=== PATIENT | female | born 1975 | race African-American/Black ===

== ENCOUNTER 2017-11-29 18:25 | Emergency (ER) | payer MEDICAID, OTHER ==
[~2017-11-29] VITALS: Ht 149.9 cm; Wt 107.4 kg
[2017-11-29 18:27] VITALS: BP 150/87; PULSE 79; RESP 16; TEMP 97.9; O2SAT 100
[2017-11-29] MEDS ORDERED: HYDR25TA5 PO ×2 (18:40→18:59)
[2017-11-29] MEDS ORDERED: AMLO10TA2 PO ×2 (18:40→18:59)
[2017-11-29] MEDS ORDERED: IBUP1TAB7 PO (18:59)
[2017-11-29] MEDS ORDERED: CYCL10TA PO (18:59)
[2017-11-29] MEDS ORDERED: KETOROLAC TROMETHAMINE 60 MG/2 ML (IM) VIAL IM ONE (19:00)
--- NOTE | 2017-11-29 19:12 | PD ---
HPI Chief Complaint: Musculoskeletal Complaint Time Seen by Provider: 18:42 Travel History International Travel<30 days: No Contact w/Intl Traveler<30days: No Traveled to known affect area: No History of Present Illness HPI 42-year-old female with PMH of hypertension presents to the ED for evaluation of low back pain. Gradual onset 4 days. Patient endorses recent overuse, stating that she's been carrying the load of 2 people at her job in the [employer]. She denies fever, chills, dysuria, hematuria, nausea or vomiting. She denies numbness, tingling, weakness, limitations to range of motion of the extremities , saddle anesthesia or incontinence. Denies trauma to the area. She treated at home with 800 mg ibuprofen with no improvement of symptoms. She also requests refills of her antihypertensive medications. PFSH Past Medical History Diminished Hearing: No Hypertension: Yes Tetanus Vaccination: > 5 Years Influenza Vaccination: No ?: Unknown Past Surgical History Section: Yes Social History Alcohol Use: Yes (OCC) Tobacco Use: Yes (FEW CIGARS) Substance Use: No Allergies-Medications (Allergen,Severity, Reaction): Coded Allergies: penicillin G (Unverified Allergy, Severe, HIVES, 11/29/17) Uncoded Allergies: NKA (Allergy, Unknown, 05/27/03) PENICILLIN (Allergy, Unknown, 05/27/03) Reported Meds & Prescriptions Reported Meds & Active Scripts Active Flexeril (Cyclobenzaprine HCl) 10 Mg Tab 10 Mg PO TID Ibuprofen 800 Mg Tab 800 Mg PO Q8H PRN Amlodipine (Amlodipine Besylate) 10 Mg Tab 10 Mg PO DAILY Hydrochlorothiazide 25 Mg Tab 25 Mg PO DAILY Review of Systems Except as stated in HPI: all other systems reviewed are Neg Physical Exam Narrative GENERAL: Well-nourished, well-developed obese AA female in no acute distress. SKIN: Focused skin assessment warm/dry. HEAD: Normocephalic. EYES: No scleral icterus. No injection or drainage. NECK: Supple, trachea midline. No JVD or lymphadenopathy. CARDIOVASCULAR: Regular rate and rhythm without murmurs, gallops, or rubs. RESPIRATORY: Breath sounds equal bilaterally. No accessory muscle use. GASTROINTESTINAL: Abdomen soft, non-tender, nondistended. MUSCULOSKELETAL: No cyanosis, or edema. 5/5 strength of the upper and lower extremities bilaterally. BACK: No obvious deformity. No CVA tenderness. No midline tenderness palpation. Tender palpation of the paraspinal musculature in the lumbar area. Data Data Last Documented VS Vital Signs Date Time Temp Pulse Resp B/P (MAP) Pulse Ox O2 Delivery O2 Flow Rate FiO2 11/29/17 18:27 97.9 79 16 150/87 (108) 100 Orders Orders Ketorolac Inj (Toradol Inj) (11/29/17 19:00) Ed Discharge Order (11/29/17 19:12) MDM Medical Decision Making Medical Screen Exam Complete: Yes Emergency Medical Condition: Yes Differential Diagnosis Musculoskeletal pain versus pyelonephritis versus muscle spasm versus medication refill versus other Narrative Course 42-year-old female with PMH of hypertension presents to the ED for evaluation of low back pain. Gradual onset 4 days. Patient endorses recent overuse, stating that she's been carrying the load of 2 people at her job in the [employer]. No red flag symptoms. She also requests refills of her antihypertensive medications. Vitals reviewed. On exam this is an obese -[place] female in no acute distress. There is tenderness to palpation of the paraspinal musculature in the lumbar spine but the exam is otherwise unremarkable. Patient was administered 60 mg Toradol IM. She was provided a short course of anti-inflammatories and muscle relaxants. Her blood pressure medications were filled which I informed her would be a one-time refill. She is instructed to rest, hydrate, return to normal, gentle activities as tolerated , take medications as tolerated, follow with her primary care. She indicated understanding of instructions. She is stable and discharged home. Diagnosis Primary Impression: Musculoskeletal back pain Additional Impression: Medication refill Referrals: Primary Care Physician Patient Instructions: Back Pain (ED), General Instructions Additional Instructions: Rest, hydrate. Return to normal, gentle activity as tolerated. Follow-up with the primary care provider. Return to the ED for worsening symptoms or any urgent or emergent medical condition. Med/Other Pt SpecificInfo: Prescription(s) given Scripts Cyclobenzaprine (Flexeril) 10 Mg Tab 10 MG PO TID for Muscle Spasm, #15 TAB 0 Refills Prov: Hans Estrada MD 11/29/17 Ibuprofen (Ibuprofen) 800 Mg Tab 800 MG PO Q8H Y for Pain/Inflammation, #15 TAB 0 Refills Prov: Hans Estrada MD 11/29/17 Amlodipine (Amlodipine) 10 Mg Tab 10 MG PO DAILY for Blood Pressure Management, #30 TAB 0 Refills Prov: Hans Estrada MD 11/29/17 Hydrochlorothiazide (Hydrochlorothiazide) 25 Mg Tab 25 MG PO DAILY, #30 TAB 0 Refills Prov: Hans Estrada MD 11/29/17 Disposition: 01 DISCHARGE HOME Condition: Stable Ashlie Ashby Nov 29, 2017 19:12
== END 2017-11-29 19:26 | disposition home or self-care (01) ==
LOC: PHEFT 18:25
DX: M54.5 Low back pain (principal); I10 Essential (primary) hypertension; Z72.0 Tobacco use
CPT/HCPCS: 96372; 99283; J1885